=== PATIENT | female | born 1985 | race Caucasian/White ===

== ENCOUNTER 2018-03-24 06:42 | Inpatient (IN) | payer OTHER, MEDICAID ==
[2018-03-24] MEDS: LACTATED RINGER'S 1,000 ML IV ×2 (07:15→21:18)
[2018-03-24] MEDS ORDERED: CARBOPROST 250 MCG INJ IM ×2 (07:30→13:30)
[2018-03-24] MEDS ORDERED: MISOPROSTOL 200 MCG TAB PR ×2 (07:30→13:30)
[2018-03-24] MEDS ORDERED: OXYTOCIN 30 UNITS/LR 500 ML IV ×2 (07:30→13:30)
[2018-03-24] MEDS ORDERED: METHYLERGONOVINE 0.2 MG INJ IM ×2 (07:30→13:30)
[2018-03-24 07:31] LABS: ADD MAN DIFF? NO
[2018-03-24 07:35] LABS: BASOPHILS % 0.3 % (0.0-2.0); EOSINOPHILS # 0.1 10^3/ul (0.0-0.5); EOSINOPHILS % 0.9 % (0.0-7.0); HEMATOCRIT 35.9 % (37.0-47.0); HEMOGLOBIN 12.5 g/dl (12.0-16.0); LYMPHOCYTES # 2.1 10^3/ul (0.8-2.9); LYMPHOCYTES % 22.9 % (15.0-51.0); MEAN CORPUSCULAR HEMOGLOBIN 30.8 pg (29.0-33.0); MEAN CORPUSCULAR HGB CONC 34.8 g/dl (32.0-37.0); MEAN CORPUSCULAR VOLUME 88.4 fl (82.0-101.0); MONOCYTE # 0.5 10^3/ul (0.3-0.9); NEUTROPHIL # 6.3 10^3/ul (1.6-7.5); NEUTROPHILS % 69.2 % (39.0-77.0); PLATELET COUNT 265 10^3/UL (140-415); RED BLOOD COUNT 4.06 10^6/ul (4.20-5.40); RED CELL DISTRIBUTION WIDTH 12.9 % (11.5-14.5)
[2018-03-24 07:56] LABS: PROTIME 12.2 Sec (11.9-14.9)
[2018-03-24 08:26] LABS: HEPATITIS B SURFACE ANTIGEN NEGATIVE (NEGATIVE)
[2018-03-24] MEDS ORDERED: FENTAnyl 50 MCG/ML VIAL (08:41)
[2018-03-24] MEDS ORDERED: BUPIVACAINE 0.75%/DEXT (SPINAL) 2 ML INJ (08:41)
[2018-03-24] MEDS ORDERED: morphine SULFATE/PF (10 MG/10 ML) INJ (08:43)
[2018-03-24] MEDS ORDERED: PHENYLephrine (100 MCG/ML) 5ML SYG (09:38)
[2018-03-24] MEDS ORDERED: NALOXONE (0.4 MG/ML) INJ IV (11:00)
[2018-03-24] MEDS ORDERED: ONDANSETRON 4 MG INJ IV (11:00)
[2018-03-24] MEDS ORDERED: ZOLPIDEM 5 MG TAB PO (11:00)
[2018-03-24] MEDS ORDERED: HYDROmorphONE 0.5 MG/0.5 ML SYG IV ×2 (11:00)
[2018-03-24] MEDS: CEFAZOLIN 2 GM/50 ML (PMX) 50 ML IV (11:11)
[2018-03-24] MEDS: OXYTOCIN 30 UNITS/LR 500 ML IV ×2 (11:23→16:12)
[2018-03-24] MEDS: KETOROLAC 30 MG INJ IV ×2 (11:25→18:34)
[2018-03-24] MEDS: CEFAZOLIN 1 GM/50 ML (PMX) 50 ML IV (13:30)
[2018-03-24] MEDS ORDERED: METHYLERGONOVINE 0.2 MG TAB PO (13:30)
[2018-03-24] MEDS ORDERED: OXYCODONE/ACETAMINOPHEN (5/325) TAB PO (13:30)
[2018-03-24] MEDS: IBUPROFEN 800 MG TAB PO ×2 (14:00→22:00)
[2018-03-24 16:29] LABS: RAPID PLASMA REAGIN NONREACTIVE (NR)
[2018-03-24] MEDS: DIPHENHYDRAMINE 50 MG INJ IV (20:49)
[2018-03-24] MEDS: SENNA/DOCUSATE NA (8.6MG/50MG) TAB PO (21:00)
[2018-03-25] MEDS: KETOROLAC 30 MG INJ IV ×2 (00:01→06:56)
[2018-03-25] MEDS: LACTATED RINGER'S 1,000 ML IV (02:14)
[2018-03-25 07:32] LABS: ADD MAN DIFF? NO
[2018-03-25] MEDS: IBUPROFEN 800 MG TAB PO ×3 (07:32→21:59)
[2018-03-25 07:36] LABS: WHITE BLOOD COUNT 13.2 10^3/ul (4.8-10.8)
[2018-03-25 07:36] LABS: BASOPHILS % 0.2 % (0.0-2.0); EOSINOPHILS % 0.2 % (0.0-7.0); HEMATOCRIT 26.3 % (37.0-47.0); HEMOGLOBIN 9.1 g/dl (12.0-16.0); LYMPHOCYTES # 1.5 10^3/ul (0.8-2.9); LYMPHOCYTES % 11.1 % (15.0-51.0); MEAN CORPUSCULAR HEMOGLOBIN 30.8 pg (29.0-33.0); MEAN CORPUSCULAR HGB CONC 34.6 g/dl (32.0-37.0); MEAN CORPUSCULAR VOLUME 89.2 fl (82.0-101.0); MEAN PLATELET VOLUME 10.5 fl (7.4-10.4); MONOCYTE # 0.7 10^3/ul (0.3-0.9); MONOCYTES % 5.1 % (0.0-11.0); NEUTROPHILS % 82.8 % (39.0-77.0); PLATELET COUNT 201 10^3/UL (140-415); RED BLOOD COUNT 2.95 10^6/ul (4.20-5.40); RED CELL DISTRIBUTION WIDTH 12.9 % (11.5-14.5)
[2018-03-25 08:10] LABS: ANION GAP 11 (8-16); BLOOD UREA NITROGEN 6 mg/dl (7-20); CALCIUM 8.4 mg/dl (8.4-10.2); CARBON DIOXIDE 23 mmol/L (21-31); CHLORIDE 102 mmol/L (97-110); CREATININE 0.55 mg/dl (0.44-1.00); GLUCOSE 95 mg/dl (70-220); POTASSIUM 4.1 mmol/L (3.5-5.1); SODIUM 132 mmol/L (135-144)
[2018-03-25] MEDS: SENNA/DOCUSATE NA (8.6MG/50MG) TAB PO ×2 (08:51→21:05)
[2018-03-25] MEDS: HYDROCODONE/APAP (5/325) TAB PO ×2 (15:54→23:25)
[2018-03-26] MEDS: IBUPROFEN 800 MG TAB PO ×3 (05:36→21:03)
[2018-03-26 08:21] LABS: ADD MAN DIFF? NO
[2018-03-26 08:27] LABS: WHITE BLOOD COUNT 13.9 10^3/ul (4.8-10.8)
[2018-03-26 08:27] LABS: BASOPHILS % 0.2 % (0.0-2.0); EOSINOPHILS # 0.1 10^3/ul (0.0-0.5); EOSINOPHILS % 0.5 % (0.0-7.0); HEMATOCRIT 24.1 % (37.0-47.0); HEMOGLOBIN 8.2 g/dl (12.0-16.0); LYMPHOCYTES # 2.3 10^3/ul (0.8-2.9); LYMPHOCYTES % 16.4 % (15.0-51.0); MEAN CORPUSCULAR HEMOGLOBIN 31.2 pg (29.0-33.0); MEAN CORPUSCULAR VOLUME 91.6 fl (82.0-101.0); MEAN PLATELET VOLUME 10.1 fl (7.4-10.4); MONOCYTE # 0.8 10^3/ul (0.3-0.9); MONOCYTES % 5.7 % (0.0-11.0); NEUTROPHIL # 10.6 10^3/ul (1.6-7.5); NEUTROPHILS % 76.8 % (39.0-77.0); PLATELET COUNT 217 10^3/UL (140-415); RED BLOOD COUNT 2.63 10^6/ul (4.20-5.40); RED CELL DISTRIBUTION WIDTH 13.2 % (11.5-14.5)
[2018-03-26] MEDS: SENNA/DOCUSATE NA (8.6MG/50MG) TAB PO ×2 (09:08→21:02)
[2018-03-27] MEDS: IBUPROFEN 800 MG TAB PO (05:26)
[2018-03-27] MEDS: HYDROCODONE/APAP (5/325) TAB PO ×2 (08:14→12:45)
[2018-03-27] MEDS: SENNA/DOCUSATE NA (8.6MG/50MG) TAB PO (08:15)
[2018-03-27] MEDS: MEASLES,MUMPS,RUBELLA VACCINE INJ SC* (09:01)
[2018-03-27 09:09] LABS: ADD MAN DIFF? NO
[2018-03-27 09:12] LABS: WHITE BLOOD COUNT 11.5 10^3/ul (4.8-10.8)
[2018-03-27 09:12] LABS: BASOPHIL # 0.1 10^3/ul (0.0-0.1); BASOPHILS % 0.4 % (0.0-2.0); EOSINOPHILS # 0.2 10^3/ul (0.0-0.5); EOSINOPHILS % 1.9 % (0.0-7.0); HEMATOCRIT 26.8 % (37.0-47.0); HEMOGLOBIN 8.9 g/dl (12.0-16.0); LYMPHOCYTES % 17.4 % (15.0-51.0); MEAN CORPUSCULAR HEMOGLOBIN 30.9 pg (29.0-33.0); MEAN CORPUSCULAR HGB CONC 33.2 g/dl (32.0-37.0); MEAN CORPUSCULAR VOLUME 93.1 fl (82.0-101.0); MEAN PLATELET VOLUME 10.4 fl (7.4-10.4); MONOCYTE # 0.6 10^3/ul (0.3-0.9); NEUTROPHIL # 8.6 10^3/ul (1.6-7.5); NEUTROPHILS % 74.8 % (39.0-77.0); PLATELET COUNT 267 10^3/UL (140-415); RED BLOOD COUNT 2.88 10^6/ul (4.20-5.40); RED CELL DISTRIBUTION WIDTH 13.2 % (11.5-14.5)
[2018-03-27] MEDS: LANOLIN 7 GM TUBE TOP (10:01)
[2018-03-27] MEDS: DIPHTH/TET/ACEL PERTUSS (ADULT) 0.5 ML VIAL IM* (11:43)
== END 2018-03-27 15:25 | disposition home or self-care (01) | DRG 766 ==
LOC: L-D 06:42 → PP1 12:42
PROVIDERS: Obstetrics & Gynecology
PROC: 10D00Z1 Extraction of Products of Conception, Low, Open Approach (ICD-10-PCS; principal; 2018-03-24 10:00)
DX: O34.211 Maternal care for low transverse scar from previous cesarean delivery (principal); Z37.0 Single live birth; Z3A.39 39 weeks gestation of pregnancy
CPT/HCPCS: 80048; 85025; 85610; 85730; 86592; 86850; 86900; 86901; 87340; 88305; 99464